=== PATIENT | female | born 1975 | race Caucasian/White ===

== ENCOUNTER 2019-11-20 09:09 | Emergency (ER) | payer OTHER ==
[~2019-11-20] VITALS: Ht 162.6 cm; Wt 100.0 kg
[~2019-11-20 09:09] MED LIST: INVEGA
[2019-11-20] MEDS ORDERED: PERTUSS(ACELL),DIPH,TET VAC/PF 0.5 ML VIAL IM ONE (10:15)
[2019-11-20 10:25] VITALS: BP 120/94
== END 2019-11-20 10:55 | disposition home or self-care (01) ==
LOC: EMS 09:21
DX: L84 Corns and callosities (principal); F17.210 Nicotine dependence, cigarettes, uncomplicated; F12.90 Cannabis use, unspecified, uncomplicated; F31.9 Bipolar disorder, unspecified; F20.9 Schizophrenia, unspecified; Z88.0 Allergy status to penicillin; Z91.018 Allergy to other foods
CPT/HCPCS: 90471; 90715; 99406

== ENCOUNTER 2020-02-20 09:03 | Emergency (ER) | payer OTHER ==
[~2020-02-20] VITALS: Ht 157.5 cm; Wt 67.3 kg
[2020-02-20 09:08] VITALS: BP 140/90
== END 2020-02-20 11:01 | disposition home or self-care (01) ==
LOC: EMS 09:04
DX: T14.8XXA Other injury of unspecified body region, initial encounter (principal); F12.90 Cannabis use, unspecified, uncomplicated; F17.210 Nicotine dependence, cigarettes, uncomplicated; Z88.1 Allergy status to other antibiotic agents; Z91.018 Allergy to other foods; W57.XXXA Bitten or stung by nonvenomous insect and other nonvenomous arthropods, initial encounter; Y93.89 Activity, other specified; Y92.89 Other specified places as the place of occurrence of the external cause; Y99.8 Other external cause status
CPT/HCPCS: 99283; Z7502

== ENCOUNTER 2023-02-09 09:30 | Emergency (ER) | payer OTHER ==
[~2023-02-09] VITALS: Ht 157.5 cm; Wt 79.5 kg
[2023-02-09 09:35] VITALS: BP 128/84; PULSE 80; RESP 18; TEMP 98.2
== END 2023-02-09 10:32 | disposition left against medical advice (07) ==
LOC: EMS 09:30
DX: S91.331A Puncture wound without foreign body, right foot, initial encounter (principal); F31.9 Bipolar disorder, unspecified; F20.9 Schizophrenia, unspecified; F12.90 Cannabis use, unspecified, uncomplicated; F17.210 Nicotine dependence, cigarettes, uncomplicated; Z98.890 Other specified postprocedural states; Z88.0 Allergy status to penicillin; Z91.018 Allergy to other foods; Z53.21 Procedure and treatment not carried out due to patient leaving prior to being seen by health care provider; W22.8XXA Striking against or struck by other objects, initial encounter; Y93.01 Activity, walking, marching and hiking; Y92.89 Other specified places as the place of occurrence of the external cause; Y99.8 Other external cause status
CPT/HCPCS: 99281; Z7502

== ENCOUNTER 2023-05-11 14:23 | Emergency (ER) | payer OTHER ==
[~2023-05-11] VITALS: Ht 157.5 cm; Wt 73.2 kg
[2023-05-11 15:02] VITALS: TEMP 98.2
[2023-05-11 15:32] VITALS: BP 121/74; PULSE 90; RESP 18
== END 2023-05-11 16:36 | disposition home or self-care (01) ==
LOC: EMS 14:27
DX: M25.531 Pain in right wrist (principal); F20.9 Schizophrenia, unspecified; F31.9 Bipolar disorder, unspecified; F17.210 Nicotine dependence, cigarettes, uncomplicated; F12.90 Cannabis use, unspecified, uncomplicated; Z88.0 Allergy status to penicillin; Z91.018 Allergy to other foods
CPT/HCPCS: 99283

== ENCOUNTER 2023-12-07 09:15 | Emergency (ER) | payer OTHER ==
[~2023-12-07] VITALS: Ht 165.1 cm; Wt 85.9 kg
[2023-12-07 09:21] VITALS: BP 123/96; PULSE 110; RESP 18; TEMP 98
[2023-12-07] MEDS ORDERED: ACET-3385 PO (18:11)
== END 2023-12-07 10:11 | disposition left against medical advice (07) ==
LOC: EMS 09:22
DX: R51.9 Headache, unspecified (principal); Z53.21 Procedure and treatment not carried out due to patient leaving prior to being seen by health care provider

== ENCOUNTER 2023-12-07 11:06 | Emergency (ER) | payer OTHER ==
[~2023-12-07] VITALS: Ht 162.6 cm; Wt 85.9 kg
[2023-12-07 17:59] VITALS: BP 115/76; PULSE 92; RESP 18; TEMP 98
[2023-12-07] MEDS: ACETAMINOPHEN 500 MG TABLET PO ONE (18:04)
[2023-12-07] MEDS ORDERED: ACET-3385 PO (18:11)
== END 2023-12-07 18:12 | disposition home or self-care (01) ==
LOC: EMS 11:21
DX: S09.90XA Unspecified injury of head, initial encounter (principal); F31.9 Bipolar disorder, unspecified; F20.9 Schizophrenia, unspecified; F17.210 Nicotine dependence, cigarettes, uncomplicated; F12.90 Cannabis use, unspecified, uncomplicated; Z98.890 Other specified postprocedural states; Z88.0 Allergy status to penicillin; Z88.8 Allergy status to other drugs, medicaments and biological substances; W18.2XXA Fall in (into) shower or empty bathtub, initial encounter; Y93.89 Activity, other specified; Y92.89 Other specified places as the place of occurrence of the external cause; Y99.8 Other external cause status
CPT/HCPCS: 70450; 72125; 99284